=== PATIENT | female | born 1975 | race Caucasian/White ===

== ENCOUNTER 2016-12-02 07:02 | Day surgery (SDC) | payer BC ==
[2016-12-02] MEDS ORDERED: LACTATED RINGERS 1,000 ML IV.SOLN IV ONE (08:00)
[2016-12-02] MEDS ORDERED: PROPOFOL 500 MG/50 ML VIAL IV ONE (08:00)
[2016-12-02] MEDS ORDERED: LIDOCAINE HCL/PF 2% 100 MG/5 ML VIAL IJ ONE (08:00)
[2016-12-02] MEDS ORDERED: SALINE FLUSH 10 ML DISP.SYRIN IVF ONE (08:00)
--- NOTE | 2016-12-02 10:32 | GI Report ---
REFERRING PHYSICIAN: Dr. Kylah Rogers ELIGIBILITY SERVICES REPRESENTATIVE: Dylan Tian MD PROCEDURE MEDICATION: Propofol as per anesthesia. INDICATIONS: Patient is a 40-year-old woman who is referred for a colonoscopy. Her mother had colon cancer at 52 and the patient's sister has also had polyps, so she is a high risk screening. She denies changes in her bowel habits or blood in the stool. She has had C-sections as abdominal surgeries. PROCEDURE PERFORMED: Colonoscopy. PROCEDURE: An Olympus video colonoscope was advanced to the rectum. The colonoscope was slowly advanced all the way to the cecum. The appendiceal orifice and the terminal ileum were inspected and were normal. On slow withdrawal, the cecum, ascending colon, and transverse colon with no obvious intraluminal lesions noted. Descending colon and sigmoid, again, no obvious intraluminal lesions noted. Retroflexion of the rectum was normal. The patient tolerated the procedure well. FINDINGS: Normal mucosa to the cecum. RECOMMENDATIONS: 1. A high-fiber diet. 2. Consider re-looking at her colon in 5 years since she is a high risk, since her mother had colon cancer at 52 and her sister has had polyps. 3. Follow up with Dr. Rogers. cc: Dr. Kylah MARIE
== END 2016-12-02 07:03 ==
LOC: OPSURG 07:02
PROVIDERS: ATTEND Internal Medicine Gastroenterology
DX: Z12.11 Encounter for screening for malignant neoplasm of colon (principal); Z80.0 Family history of malignant neoplasm of digestive organs
CPT/HCPCS: 45378; J2001; J2704; J7120; S1016

== ENCOUNTER 2017-05-02 10:47 | Emergency (ER) | payer BC, OTHER ==
[2017-05-02] MEDS ORDERED: DIPH,PERTUSS(ACELL),TET VAC/PF 0.5 ML DISP.SYRIN IM ONE (10:55)
[2017-05-02 11:02] VITALS: BP 134/81
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
== END 2017-05-02 11:30 | disposition home or self-care (01) ==
LOC: ED 10:47
DX: S61.452A Open bite of left hand, initial encounter (principal); Y00.XXXA Assault by blunt object, initial encounter; Y92.10 Unspecified residential institution as the place of occurrence of the external cause; Y99.9 Unspecified external cause status
CPT/HCPCS: 36415; 86703; 86706; 86803; 90471; 90715; 99283